=== PATIENT | female | born 1975 | race Caucasian/White ===

== ENCOUNTER 2017-03-09 09:26 | Emergency (ER) | payer OTHER, MEDICAID ==
[~2017-03-09] VITALS: Ht 170.2 cm; Wt 109.0 kg
[~2017-03-09 09:26] MED LIST: LACT10SO PO; LIDO0.052; LORA-392 PO; METO25TA3 PO; MIRA33504 PO; NITR100C4 PO; TAPE100T PO; WELLTAB39 PO; ZOFR4TAB3 SL
[2017-03-09 09:28] VITALS: BP 166/97; PULSE 68; RESP 16; TEMP 98; O2SAT 99
[2017-03-09] MEDS ORDERED: KETOROLAC TROMETHAMINE 30 MG/ML (IVP) VIAL IV PUSH ONE (10:00)
[2017-03-09] MEDS ORDERED: methylPREDNISolone SOD SUCC 125 MG/2 ML VIAL IV PUSH ONE (10:00)
[2017-03-09 10:35] LABS: AUTOMATED NEUTROPHIL # 3.9 TH/MM3 (1.8-7.7); BASOPHIL % 0.3 % (0.0-2.0); HEMATOCRIT 39.4 % (35.0-46.0); HEMO FLAGS DIFF FINAL; LYMPH % 20.9 % (9.0-44.0); LYMPHOCYTE # 1.1 TH/MM3 (1.0-4.8); MEAN CELL VOLUME 83.7 FL (80.0-100.0); MEAN CORPUSCULAR HEMOGLOBIN 28.3 PG (27.0-34.0); MEAN CORPUSCULAR HGB CONC 33.8 % (32.0-36.0); MONO % 7.4 % (0.0-8.0); NEUT % 71.4 % (16.0-70.0); PLATELET COUNT 245 TH/MM3 (150-450); RED BLOOD COUNT 4.71 MIL/MM3 (4.00-5.30); RED CELL DISTRIBUTION WIDTH 12.9 % (11.6-17.2); WHITE BLOOD COUNT 5.5 TH/MM3 (4.0-11.0)
[2017-03-09 10:48] LABS: BICARBONATE 27.7 MEQ/L (21.0-32.0)
[2017-03-09] MEDS ORDERED: LORazepam 2 MG/ML VIAL ONE (11:07)
[2017-03-09] MEDS ORDERED: ONDANSETRON HCL 4 MG/2 ML VIAL ONE (11:07)
[2017-03-09] MEDS ORDERED: LORazepam 2 MG/ML VIAL IV PUSH ONE (11:15)
[2017-03-09] MEDS ORDERED: ONDANSETRON HCL 4 MG/2 ML VIAL IV PUSH ONE (11:15)
--- NOTE | 2017-03-09 11:58 | PD ---
HPI Chief Complaint: Allergic/Adverse Reaction Time Seen by Provider: 09:41 Travel History International Travel<30 days: No Contact w/Intl Traveler<30days: No Traveled to known affect area: No History of Present Illness HPI This is a 41-year-old female who presents to the emergency department with multiple complaints. She had a cervical spine surgery in September of last year and a follow-up. She reports since then she's been having some left arm weakness. She says over the past week her weakness has gotten much worse. She had one episode of urinary incontinence overnight. She also reports that for the past several days every time she takes her Nucynta she develops swelling on the right side of her face, sore throat, and feels like her throat is closing up. She's been taking this pain medication for 5 years but has never had a reaction like this before. She feels generally weak, confused and not herself. She feels like something is wrong. She spoke to her surgery who would not see her again because she was a Worker's Compensation patient but they did prescribe her a Medrol Dosepak over the phone which she has been taking. She is worried that she may have had a stroke. PFSH Past Medical History Hx Anticoagulant Therapy: No Anemia: Yes Arthritis: Yes Asthma: No Autoimmune Disease: No Heart Rhythm Problems: No Cancer: No Cardiovascular Problems: No High Cholesterol: No Chemotherapy: No Chest Pain: No Congestive Heart Failure: No COPD: No Cerebrovascular Accident: No Diabetes: No Diminished Hearing: No Endocrine: No Gastrointestinal Disorders: Yes GERD: No Genitourinary: No Headaches: Yes (MILD HEADACHES) Hepatitis: No Hiatal Hernia: No Herniated Disk: Yes (neck) Hypertension: Yes Immune Disorder: No Inguinal Hernia: Yes Implanted Vascular Access Dvce: Yes Kidney Stones: Yes Musculoskeletal: Yes Psychiatric: No Reproductive: No Respiratory: No Migraines: Yes Renal Failure: Yes Seizures: No Sleep Apnea: No Thyroid Disease: No Ulcer: Yes PNEUMOCCOCAL Vaccine (Year): 2 ?: Not LMP: 02/16/2017 : 2 Para: 2 Tubal Ligation: Yes Past Surgical History Abdominal Surgery: Yes (lap band 2003, 2009, GASTRIC SLEEVE 2014) AICD: No Arteriovenous Shunt: No Body Medical Devices: titanium plate in neck Cardiac Surgery: No Section: Yes (1994; 2009) Ear Surgery: Yes (tubes childhood) Endocrine Surgery: No Eye Surgery: No Genitourinary Surgery: No Gynecologic Surgery: Yes (2 c sections) Hysterectomy: No Insulin Pump: No Joint Replacement: No Neurologic Surgery: No Oral Surgery: Yes (cauterize vessels in nose childhood) Pacemaker: No Thoracic Surgery: No Tonsillectomy: Yes Other Surgery: Yes (HERNIA REPAIR 07/17/14) Social History Alcohol Use: No Tobacco Use: Yes ( cigs/day) Substance Use: No Allergies-Medications (Allergen,Severity, Reaction): Coded Allergies: No Known Allergies (Verified , 03/09/17) Reported Meds & Prescriptions Reported Meds & Active Scripts Active Nitrofurantoin Monohydrate Macrocrystals (Nitrofurantoin Monoh/Nitrofur Macro) 100 Mg Cap 100 Mg PO BID Zofran ODT (Ondansetron HCl) 4 Mg Tab 4 Mg SL Q6H PRN FOR NAUSEA/VOMITING Reported Lidocaine 4% Transparent Topical Dressing 4 % Kit 5 Metoprolol Tartrate 25 Mg Tab 25 Mg PO BID Ativan (Lorazepam) 0.5 Mg Tab 0.5 Mg PO BID PRN PRN Nucynta ER (Tapentadol) 100 Mg Kosta 100 Mg PO BID Lactulose Liq (Lactulose) 10 Gm/15 Ml Soln 15 Ml PO DAILY PRN Miralax Powder (Polyethylene Glycol 3350 Powder) 17 Gm Powd 17 Gm PO DAILY Mix and dissolve one measuring cap-ful (17 grams) in water or juice. Wellbutrin Xl 24 HR (Bupropion HCl) 300 Mg Tab 300 Mg PO DAILY Review of Systems Except as stated in HPI: all other systems reviewed are Neg Physical Exam Narrative GENERAL:Well appearing, no acute distress SKIN: Flushing involving her chest and face HEAD: Atraumatic. Normocephalic. EYES: Pupils pinpoint, equal and reactive no injection or drainage. ENT: Moist mucous membranes NECK: Trachea midline. CARDIOVASCULAR: Regular rate and rhythm. No murmur appreciated. RESPIRATORY: Clear to auscultation. Breath sounds equal bilaterally. GASTROINTESTINAL: Abdomen soft, non-tender, nondistended. MUSCULOSKELETAL: No obvious deformities. NEUROLOGICAL: Awake and alert. No obvious cranial nerve deficits. No dysarthria or aphasia. Inconsistent strength exam with some possible weakness on the left upper and left lower extremity, not reproducible. No upper extremity ataxia. PSYCHIATRIC: Some pressured speech, patient is tangential Data Data Last Documented VS Vital Signs Date Time Temp Pulse Resp B/P Pulse Ox O2 Delivery O2 Flow Rate FiO2 03/09/17 12:32 70 16 127/71 100 Room Air 03/09/17 09:28 98.0 Orders Complete Blood Count With Diff (03/09/17 10:00) Basic Metabolic Panel (Bmp) (03/09/17 10:00) ^ Insert Iv (03/09/17 10:00) Ed Urine Pregnancytest Poc (03/09/17 10:00) Ketorolac Inj (Toradol Inj) (03/09/17 10:00) Methylprednisolone So Succ Inj (Solumedr (03/09/17 10:00) Mri Brain W/O Contrast (03/09/17 ) Mri C Spine W&W/O Contrast (03/09/17 ) Lorazepam Inj (Ativan Inj) (03/09/17 11:15) Ondansetron Inj (Zofran Inj) (03/09/17 11:15) Ondansetron Inj (Zofran Inj) (03/09/17 11:07) Lorazepam Inj (Ativan Inj) (03/09/17 11:07) Gadodiamide Pf Inj (Omniscan Pf Inj) (03/09/17 12:06) Labs Laboratory Tests Test 03/09/17 10:15 White Blood Count 5.5 TH/MM3 Red Blood Count 4.71 MIL/MM3 Hemoglobin 13.3 GM/DL Hematocrit 39.4 % Mean Corpuscular Volume 83.7 FL Mean Corpuscular Hemoglobin 28.3 PG Mean Corpuscular Hemoglobin 33.8 % Concent Red Cell Distribution Width 12.9 % Platelet Count 245 TH/MM3 Mean Platelet Volume 8.6 FL Neutrophils (%) (Auto) 71.4 % Lymphocytes (%) (Auto) 20.9 % Monocytes (%) (Auto) 7.4 % Eosinophils (%) (Auto) 0.0 % Basophils (%) (Auto) 0.3 % Neutrophils # (Auto) 3.9 TH/MM3 Lymphocytes # (Auto) 1.1 TH/MM3 Monocytes # (Auto) 0.4 TH/MM3 Eosinophils # (Auto) 0.0 TH/MM3 Basophils # (Auto) 0.0 TH/MM3 CBC Comment DIFF FINAL Differential Comment Sodium Level 140 MEQ/L Potassium Level 4.0 MEQ/L Chloride Level 109 MEQ/L Carbon Dioxide Level 27.7 MEQ/L Anion Gap 3 MEQ/L Blood Urea Nitrogen 6 MG/DL Creatinine 0.93 MG/DL Estimat Glomerular Filtration 67 ML/MIN Rate Random Glucose 90 MG/DL Calcium Level 8.9 MG/DL [facility] Medical Decision Making Medical Screen Exam Complete: Yes Emergency Medical Condition: Yes Interpretation(s) Afebrile, no tachycardia, hypertensive No leukocytosis Electrolytes are reassuring Last 24 hours Impressions Cervical Spine MRI 03/09/17 0000 Signed Impressions: Service Date/Time: Thursday, March 09, 2017 11:20 - CONCLUSION: 1. The cervical cord is intact with no abnormal enhancement or lesion. 2. Status post anterior fusion at the C5-6 level. 3. Mild disc bulges at the C4-5 and C6-7 levels. Manuel Vargas MD Brain MRI 03/09/17 0000 Signed Impressions: Service Date/Time: Thursday, March 09, 2017 11:20 - CONCLUSION: 1. No acute infarction, hemorrhage or mass. 2. Several small scattered punctate areas of increased signal on the flair weighted images which are nonspecific but likely represents mild chronic small vessel ischemic change. Manuel Vargas MD Differential Diagnosis Epidural abscess, disc herniation, polypharmacy, medication side effect, stroke Narrative Course This is a 41-year-old female who presents to the emergency department with multiple complaints including confusion, left-sided weakness, swelling in her face and sore throat. She is chronically opiate dependent and her symptoms seem to be related to taking Nucynta. The patient is quite tangential. It's very difficult to get a linear history from her. I performed an MRI of her brain and cervical spine both of which were reassuring due to her nonspecific neurologic symptoms. I suspect her symptoms are related to polypharmacy. I advised her to follow up with her pain management doctor. I offered her steroids for her symptoms but she is concerned because she doesn't want to get an infection in her hernia. I don't think she needs them emergently, I do think she needs to have her medications titrated as an outpatient. Diagnosis Primary Impression: Adverse effects of medication Qualified Code: T88.7XXA - Adverse effects of medication, initial encounter Patient Instructions: General Instructions Additional Instructions: If you develop severe chest pain, shortness of breath, sweating, lightheadedness , dizziness or difficulty breathing return to the emergency department immediately. Followup with your primary care physician in 2-3 days if your symptoms are not resolved. Med/Other Pt SpecificInfo: No Change to Meds Disposition: 01 DISCHARGE HOME Condition: Stable Chapis Zuniga MD Mar 09, 2017 11:58
[2017-03-09] MEDS ORDERED: GADODIAMIDE PF 287 MG/ML 5 ML VIAL (for RAD MRI) IV ONE (12:06)
--- NOTE | 2017-03-09 12:11 | RADRPT ---
EXAM DATE/TIME: 03/09/2017 11:20 [facility] COMPARISON: No previous studies available for comparison. INDICATIONS : Left sided weakness. MEDICAL HISTORY : Hypertension. SURGICAL HISTORY : Fusion, cervical. lap band insertion and removal, hernia ENCOUNTER: Initial ACUITY: 2 weeks PAIN SCORE: 0/10 LOCATION: cranial TECHNIQUE: Multiplanar, multisequence MRI of the brain was performed without contrast. FINDINGS: CEREBRUM: The ventricles are normal for age. No evidence of midline shift, mass lesion, hemorrhage or acute in farction. No extraaxial fluid collections are seen. The pituitary gland and suprasellar cistern are normal in configuration. WHITE MATTER: On the flair weighted images there are several small scattered punctate areas of increased signal not ed in the deep white matter. POSTERIOR FOSSA: The cerebellum and brainstem are intact. The 4th ventricle is midline. The cerebellopontine angle is unremarkable. The cerebellar tonsils are normal in position. DIFFUSION IMAGING: No focal areas of restricted diffusion are seen. No evidence of acute infarction. EXTRACRANIAL: The visualized portions of the orbits and paranasal sinuses are unremarkable. CONCLUSION: 1. No acute infarction, hemorrhage or mass. 2. Several small scattered punctate areas of increased signal on the flair weighted images which are nonspecific but likely represents mild chronic small vessel ischemic change. Manuel Vargas MD on March 09, 2017 at 12:07 Board Certified Radiologist. This report was verified electronically.
[2017-03-09 12:32] VITALS: BP 127/71; PULSE 70; RESP 16; O2SAT 100
--- NOTE | 2017-03-09 13:15 | RADRPT ---
EXAM DATE/TIME: 03/09/2017 11:20 [facility] COMPARISON: No previous studies available for comparison. INDICATIONS : Left sided weakness with a history of fusion/ CONTRAST: 22 cc Omniscan (gadodiamide) IV MEDICAL HISTORY : Hypertension. SURGICAL HISTORY : Fusion, cervical. lap band insertion and removal, hernia ENCOUNTER: Initial ACUITY: 2 weeks PAIN SCORE: 0/10 LOCATION: neck TECHNIQUE: Multiplanar, multisequence MRI examination of the cervical spine was performed. FINDINGS: VERTEBRAE: Normal vertebral body height. Homogeneous marrow signal. ALIGNMENT: No evidence of subluxation. DISCS: The patient is status post anterior cervical fusion at the C5-6 level with screw plate fixation devic e and susceptibility artifact. CORD: Normal configuration and signal. POST FOSSA: The cerebellar tonsils are normal in position. POST-CONTRAST: No abnormal areas of enhancement are seen. C2-C3: The thecal sac has a normal configuration. There is no evidence of disc herniation or spinal canal stenosis. The neural foramina are patent bilaterally. C3-C4: The thecal sac has a normal configuration. There is no evidence of disc herniation or spinal canal s tenosis. The neural foramina are patent bilaterally. C4-C5: There is a mild annular disc bulge with mild flattening of the anterior thecal sac and no focal protr usion. There is no evidence of disc herniation or spinal canal stenosis. The neural foramina are pat ent bilaterally.C5-C6: The thecal sac has a normal configuration. There is no evidence of disc herniation or spinal canal s tenosis. The neural foramina are patent bilaterally. C6-C7: There is a mild annular disc bulge with mild flattening of the thecal sac and no mass effect upon the cord. There is no evidence of disc herniation or spinal canal stenosis. The neural foramina are pat ent bilaterally. C7-T1: The thecal sac has a normal configuration. There is no evidence of disc herniation or spinal canal s tenosis. The neural foramina are patent bilaterally. CONCLUSION: 1. The cervical cord is intact with no abnormal enhancement or lesion. 2. Status post anterior fusion at the C5-6 level. 3. Mild disc bulges at the C4-5 and C6-7 levels. Manuel Vargas MD on March 09, 2017 at 13:10 Board Certified Radiologist. This report was verified electronically.
[2017-03-09 14:06] VITALS: BP 131/65
== END 2017-03-09 14:08 | disposition home or self-care (01) ==
LOC: NEPD 09:26
DX: R53.1 Weakness (principal); R22.0 Localized swelling, mass and lump, head; T40.2X5A Adverse effect of other opioids, initial encounter; M50.221 Other cervical disc displacement at C4-C5 level; M50.223 Other cervical disc displacement at C6-C7 level
CPT/HCPCS: 70551; 72156; 80048; 84703; 85025; 96374; 96375; 99284; A9579; J1885; J2060; J2405; J2930

== ENCOUNTER 2018-01-12 19:30 | Emergency (ER) | payer MEDICAID, OTHER ==
[~2018-01-12] VITALS: Ht 172.7 cm; Wt 135.0 kg
[~2018-01-12 19:30] MED LIST changes: +NUCY100T9 PO; -TAPE100T PO
[2018-01-12] MEDS ORDERED: IOHEXOL 350 MG/ML 10 ML VIAL (for RAD DIAG) IVCONTRAST ONE (19:31)
[2018-01-12 19:45] VITALS: BP 172/88; PULSE 83; RESP 16; TEMP 99.1; O2SAT 100
--- NOTE | 2018-01-12 20:36 | PD ---
HPI Chief Complaint: Edema Time Seen by Provider: 20:23 Travel History International Travel<30 days: No Contact w/Intl Traveler<30days: No Traveled to known affect area: No History of Present Illness HPI 42-year-old female presents to the emergency department complaining of swelling of the left lower extremity as well as lower abdomen swelling and noticing early vaginal bleeding that is not consistent with her control pill schedule. Patient states she is on control pills for irregular menstrual bleeding and ovarian cyst management. Patient does not report any ovarian cyst pain or sudden onset lower abdominal pain but does report bloating to the lower abdomen and also complains of weight gain. Patient does not complain of shortness of breath but has had some nonspecific back pain. Patient has chronic neck and back pain. Also multiple abdominal surgeries including failed gastric bypass. Patient rates overall discomfort 3/10 in intensity. Patient denies tobacco use. Patient does not report pleuritic chest pain. Patient denies any dysuria frequency urgency or gross hematuria. Vaginal bleeding is consistent with old blood and few clots. Patient denies . Patient is also status post tubal ligation. [facility] Past Medical History Narrative Medical Anemia arthritis morbid obesity hypertension migraines chronic pain syndrome degenerative disc disease gastric bypass herniorrhaphy tubal ligation ; no tobacco use; nursing notes reviewed Hx Anticoagulant Therapy: No Anemia: Yes Arthritis: Yes Asthma: No Autoimmune Disease: No Heart Rhythm Problems: No Cancer: No Cardiovascular Problems: No High Cholesterol: No Chemotherapy: No Chest Pain: No Congestive Heart Failure: No COPD: No Cerebrovascular Accident: No Diabetes: No Diminished Hearing: No Endocrine: No Gastrointestinal Disorders: Yes GERD: No Genitourinary: No Headaches: Yes (MILD HEADACHES) Hepatitis: No Hiatal Hernia: No Herniated Disk: Yes (neck) Hypertension: Yes Immune Disorder: No Inguinal Hernia: Yes Implanted Vascular Access Dvce: Yes Kidney Stones: Yes Medical other: Yes (HX SHINGLES 10 YEARS AGO) Musculoskeletal: Yes Psychiatric: No Reproductive: No Respiratory: No Migraines: Yes Renal Failure: Yes Seizures: No Sleep Apnea: No Thyroid Disease: No Ulcer: Yes Tetanus Vaccination: < 5 Years Influenza Vaccination: Yes PNEUMOCCOCAL Vaccine (Year): 2 ?: Not LMP: 12/12/2017 : 2 Para: 2 Tubal Ligation: Yes Past Surgical History Abdominal Surgery: Yes (lap band 2003, 2009, GASTRIC SLEEVE 2014) AICD: No Arteriovenous Shunt: No Body Medical Devices: titanium plate in neck Cardiac Surgery: No Section: Yes (1994; 2009) Ear Surgery: Yes (tubes childhood) Endocrine Surgery: No Eye Surgery: No Genitourinary Surgery: No Gynecologic Surgery: Yes (2 c sections) Hysterectomy: No Insulin Pump: No Joint Replacement: No Neurologic Surgery: No Oral Surgery: Yes (cauterize vessels in nose childhood) Pacemaker: No Thoracic Surgery: No Tonsillectomy: Yes Other Surgery: Yes (HERNIA REPAIR 07/17/14) Social History Alcohol Use: No Tobacco Use: No ( cigs/day) Substance Use: No Allergies-Medications (Allergen,Severity, Reaction): Coded Allergies: pregabalin (Verified Allergy, Severe, Anaphylaxis, 01/12/18) Reported Meds & Prescriptions Reported Meds & Active Scripts Active Nitrofurantoin Monohydrate Macrocrystals (Nitrofurantoin Monoh/Nitrofur Macro) 100 Mg Cap 100 Mg PO BID Zofran ODT (Ondansetron HCl) 4 Mg Tab 4 Mg SL Q6H PRN FOR NAUSEA/VOMITING Reported Lidocaine 4% Transparent Topical Dressing 4 % Kit 5 Metoprolol Tartrate 25 Mg Tab 25 Mg PO BID Ativan (Lorazepam) 0.5 Mg Tab 0.5 Mg PO BID PRN PRN Nucynta ER (Tapentadol) 100 Mg Kosta 100 Mg PO BID Lactulose Liq (Lactulose) 10 Gm/15 Ml Soln 15 Ml PO DAILY PRN Miralax Powder (Polyethylene Glycol 3350 Powder) 17 Gm Powd 17 Gm PO DAILY Mix and dissolve one measuring cap-ful (17 grams) in water or juice. Wellbutrin Xl 24 HR (Bupropion HCl) 300 Mg Tab 300 Mg PO DAILY Review of Systems Except as stated in HPI: all other systems reviewed are Neg General / Constitutional: Positive: Weight Gain, No: Fever, Chills HENT: No: Congestion Cardiovascular: No: Chest Pain or Discomfort Respiratory: No: Shortness of Breath Gastrointestinal: Positive: Abdominal Pain, No: Nausea, Vomiting Genitourinary: Positive: Pelvic Pain, Vaginal Bleeding, No: Dysuria Musculoskeletal: Positive: Edema (LLE), Pain (LLE), No: Myalgias, Arthralgias Neurologic: No: Weakness Psychiatric: No: Anxiety Hematologic/Lymphatic: No: Lymph Node Enlargement Physical Exam Narrative GENERAL: Well-developed well-nourished obese female no acute distress or respiratory distress SKIN: Warm and dry. HEAD: Normocephalic. EYES: No scleral icterus. No injection or drainage. NECK: Supple, trachea midline. No JVD or lymphadenopathy. CARDIOVASCULAR: Regular rate and rhythm without murmurs, gallops, or rubs. RESPIRATORY: Breath sounds equal bilaterally. No accessory muscle use. GASTROINTESTINAL: Abdomen soft, non-tender, nondistended. Pelvic exam: Normal external exam no redness induration or lesion; speculum exam scant old blood no clots no tissue cervical loss closed; bimanual exam no adnexal mass or tenderness no cervical motion tenderness MUSCULOSKELETAL: No cyanosis, or edema. Left lower extremity edema with tenderness to palpation in the posterior calf negative Homans sign bilateral dorsalis pedis pulses 2+ to palpation with brisk capillary refill less than 2 seconds no pallor or coolness BACK: Nontender without obvious deformity. No CVA tenderness. Data Data Last Documented VS Vital Signs Date Time Temp Pulse Resp B/P (MAP) Pulse Ox O2 Delivery O2 Flow Rate FiO2 01/12/18 19:45 99.1 83 16 172/88 (116) 100 Orders Orders Complete Blood Count With Diff (01/12/18 20:23) Comprehensive Metabolic Panel (01/12/18 20:23) Urinalysis - C+S If Indicated (01/12/18 20:23) Ed Urine Pregnancytest Poc (01/12/18 20:23) Ct Abd/Pel W Iv Contrast(Rout) (01/12/18 ) Us Leg Venous Doppler (01/12/18 ) D-Dimer (01/12/18 20:23) Ct Pulmonary Angiogram (01/12/18 ) Iohexol 350 Inj (Omnipaque 350 Inj) (01/12/18 19:31) Ed Discharge Order (01/12/18 23:24) Labs Laboratory Tests Test 01/12/18 20:40 01/12/18 21:21 White Blood Count 8.1 TH/MM3 Red Blood Count 4.73 MIL/MM3 Hemoglobin 13.3 GM/DL Hematocrit 39.5 % Mean Corpuscular Volume 83.4 FL Mean Corpuscular Hemoglobin 28.2 PG Mean Corpuscular Hemoglobin Concent 33.7 % Red Cell Distribution Width 13.5 % Platelet Count 246 TH/MM3 Mean Platelet Volume 8.4 FL Neutrophils (%) (Auto) 67.2 % Lymphocytes (%) (Auto) 23.8 % Monocytes (%) (Auto) 8.3 % Eosinophils (%) (Auto) 0.2 % Basophils (%) (Auto) 0.5 % Neutrophils # (Auto) 5.4 TH/MM3 Lymphocytes # (Auto) 1.9 TH/MM3 Monocytes # (Auto) 0.7 TH/MM3 Eosinophils # (Auto) 0.0 TH/MM3 Basophils # (Auto) 0.0 TH/MM3 CBC Comment DIFF FINAL Differential Comment D-Dimer Quantitative (PE/DVT) 0.58 MG/L FEU Blood Urea Nitrogen 14 MG/DL Creatinine 1.03 MG/DL Random Glucose 86 MG/DL Total Protein 7.5 GM/DL Albumin 3.7 GM/DL Calcium Level 9.2 MG/DL Alkaline Phosphatase 105 U/L Aspartate Amino Transf (AST/SGOT) 26 U/L Alanine Aminotransferase (ALT/SGPT) 50 U/L Total Bilirubin 0.2 MG/DL Sodium Level 137 MEQ/L Potassium Level 4.0 MEQ/L Chloride Level 103 MEQ/L Carbon Dioxide Level 27.7 MEQ/L Anion Gap 6 MEQ/L Estimat Glomerular Filtration Rate 59 ML/MIN Urine Color YELLOW Urine Turbidity CLEAR Urine pH 5.5 Urine Specific [place] 1.022 Urine Protein NEG mg/dL Urine Glucose (UA) NEG mg/dL Urine Ketones NEG mg/dL Urine Occult Blood MOD Urine Nitrite NEG Urine Bilirubin NEG Urine Urobilinogen LESS THAN 2.0 MG/DL Urine Leukocyte Esterase NEG Urine RBC 54 /hpf Urine WBC 1 /hpf Urine Squamous Epithelial Cells 1 /hpf Urine Mucus FEW /lpf Microscopic Urinalysis Comment CULT NOT INDICATED MDM Medical Decision Making Medical Screen Exam Complete: Yes Emergency Medical Condition: Yes Medical Record Reviewed: Yes Interpretation(s) poc hcg: negative Last Impressions Lower Extremity Ultrasound 01/12/18 0000 Signed Impressions: Service Date/Time: Friday, January 12, 2018 21:56 - CONCLUSION: No evidence of deep venous thrombosis within the left lower extremity. Brandon Tyson MD CT Angiography 01/12/18 0000 Signed Impressions: Service Date/Time: Friday, January 12, 2018 22:40 - CONCLUSION: 1. No CT evidence for pulmonary embolism. 2. Unremarkable CT examination of the chest. Austen Zapata MD Abdomen/Pelvis CT 01/12/18 0000 Signed Impressions: Service Date/Time: Friday, January 12, 2018 22:40 - CONCLUSION: 1. No acute CT abnormality in the abdomen or pelvis. 2. Normal appendix. 3. Posterior screw features of prior gastric sleeve procedure and anterior abdominal wall hernia repairs. 4. Hepatomegaly with diffusely decreased hepatic attenuation consistent with hepatic steatosis. Austen Zapata MD CBC & BMP Diagram 01/12/18 20:40 Total Protein 7.5, Albumin 3.7, Calcium Level 9.2, Alkaline Phosphatase 105, Aspartate Amino Transf (AST/SGOT) 26, Alanine Aminotransferase (ALT/SGPT) 50, Total Bilirubin 0.2 Vital Signs Date Time Temp Pulse Resp B/P (MAP) Pulse Ox O2 Delivery O2 Flow Rate FiO2 01/12/18 19:45 99.1 83 16 172/88 (116) 100 Differential Diagnosis DVT PE dysfunctional uterine bleeding medication noncompliance anemia UTI ruptured ovarian cyst; also consider ovarian torsion although unlikely at this time Narrative Course IV access obtained specimens collected and sent for result Imaging studies ordered Ultrasound negative for DVT CT pulmonary angiogram is negative for PE and infiltrate and CT abdomen pelvis is negative for acute pelvic process Lab values are found are grossly normal range [id number] hCG is negative and patient is stable for outpatient management Diagnosis Primary Impression: Dysfunctional uterine bleeding Referrals: Primary Care Physician call for appointment Patient Instructions: General Instructions Additional Instructions: Follow-up with your primary care/managing physician Return to the emergency department for any concerns or change in condition May use [id number] ibuprofen/Advil/Motrin 800 mg as often as every 8 hours as needed for discomfort or for fever 100.4F or greater Increase fluid hydration Disposition: 01 DISCHARGE HOME Condition: Stable Na Mcdaniels MD Jan 12, 2018 20:35
[2018-01-12 21:23] LABS: AUTOMATED NEUTROPHIL # 5.4 TH/MM3 (1.8-7.7); BASOPHIL % 0.5 % (0.0-2.0); EOSINOPHIL % 0.2 % (0.0-4.0); HEMATOCRIT 39.5 % (35.0-46.0); HEMOGLOBIN 13.3 GM/DL (11.6-15.3); LYMPH % 23.8 % (9.0-44.0); LYMPHOCYTE # 1.9 TH/MM3 (1.0-4.8); MEAN CELL VOLUME 83.4 FL (80.0-100.0); MEAN CORPUSCULAR HEMOGLOBIN 28.2 PG (27.0-34.0); MEAN CORPUSCULAR HGB CONC 33.7 % (32.0-36.0); MEAN PLATELET VOLUME 8.4 FL (7.0-11.0); MONO % 8.3 % (0.0-8.0); MONOCYTE # 0.7 TH/MM3 (0-0.9); NEUT % 67.2 % (16.0-70.0); PLATELET COUNT 246 TH/MM3 (150-450); RED BLOOD COUNT 4.73 MIL/MM3 (4.00-5.30); RED CELL DISTRIBUTION WIDTH 13.5 % (11.6-17.2); WHITE BLOOD COUNT 8.1 TH/MM3 (4.0-11.0)
[2018-01-12 21:44] LABS: BILIRUBIN, URINE NEG (NEG); BLOOD, URINE MOD (NEG); GLUCOSE,URINE NEG (NEG); KETONE, URINE NEG (NEG); MUCUS URINE FEW /lpf (OCC); NITRITE,URINE NEG (NEG); PH, URINE 5.5 (5.0-8.5); SQUAMOUS EPITHELIAL CELL URINE 1 /hpf (0-5); URINE COLOR YELLOW (YELLW/STRAW); URINE LEUKOCYTE ESTERASE NEG (NEG)
[2018-01-12 21:45] LABS: ALBUMIN 3.7 GM/DL (3.4-5.0); AST (GOT) 26 U/L (15-37); BICARBONATE 27.7 MEQ/L (21.0-32.0); BLOOD UREA NITROGEN 14 MG/DL (7-18); CALCIUM 9.2 MG/DL (8.5-10.1); CHLORIDE 103 MEQ/L (98-107); CREATININE 1.03 MG/DL (0.50-1.00); GLOMERULAR FILTRATION RATE 59 ML/MIN (>89); GLUCOSE,RANDOM 86 MG/DL (74-106); SODIUM (NA) 137 MEQ/L (136-145)
[2018-01-12 21:46] LABS: ALT (GPT) 50 U/L (10-53)
[2018-01-12 21:49] LABS: ALKALINE PHOSPHATASE 105 U/L (45-117); TOTAL BILIRUBIN ADULT 0.2 MG/DL (0.2-1.0); TOTAL PROTEIN 7.5 GM/DL (6.4-8.2)
--- NOTE | 2018-01-12 22:30 | RADRPT ---
EXAM DATE/TIME: 01/12/2018 21:56 [facility] COMPARISON: No previous studies available for comparison. INDICATIONS : Left leg swelling. MEDICAL HISTORY : Gastroesophageal reflux disease. . Renal failure, chronic. Migraines. Hypertension. Ulcer . IBD. Kidney stones. Inguinal hernia. Slipped discs. Arthritis. Depression. Anxiety. Anemia. Blood t ransfusion. Shingles. SURGICAL HISTORY : section. Tubal ligation. Tonsillectomy. Nephrectomy. Kidney transplant. Ear tubes. Lap band . Gastric sleeve. Cervical fusion. stimulator placement and removal. Hernia repair. ENCOUNTER: Initial ACUITY: 1 day PAIN SCORE: 4/10 LOCATION: Left leg. TECHNIQUE: Venous ultrasound of the leg was performed from the inguinal ligament to the proximal calf. Real-madyson e, color Doppler and spectral tracing, compression and augmentation techniques were used. FINDINGS: There is normal compressibility of the deep venous system from the inguinal region to the proximal ca lf. No echogenic clot is seen in the lumen of the common femoral, femoral, popliteal, and posterior tibial veins. There is a normal response of the venous system to proximal and distal augmentation an d respiration. CONCLUSION: No evidence of deep venous thrombosis within the left lower extremity. Brandon Tyson MD on January 12, 2018 at 22:29 Board Certified Radiologist. This report was verified electronically.
--- NOTE | 2018-01-12 23:00 | RADRPT ---
EXAM DATE/TIME: 01/12/2018 22:40 [facility] COMPARISON: No previous studies available for comparison. INDICATIONS : Shortness of breath. IV CONTRAST: 100 cc Omnipaque 350 (iohexol) IV ; Cumulative dose for multiple exams. RADIATION DOSE: 9.0 CTDIvol (mGy) MEDICAL HISTORY : Hypertension. SURGICAL HISTORY : Tubal ligation. ENCOUNTER: Initial ACUITY: 1 day PAIN SCALE: 0/10 LOCATION: chest TECHNIQUE: Volumetric scanning of the chest was performed using a pulmonary embolism protocol MIP images were re constructed. Using automated exposure control and adjustment of the mA and/or kV according to patien t size, radiation dose was kept as low as reasonably achievable to obtain optimal diagnostic quality images. DICOM format image data is available electronically for review and comparison. Follow-up recommendations for detected pulmonary nodules are based at a minimum on nodule size and pa tient risk factors according to Fleischner Society Guidelines. FINDINGS: PULMONARY ARTERIES: No filling defects are seen in the pulmonary arteries through the segmental level. LUNGS: There is no consolidation or pneumothorax . No concerning pulmonary nodule is visualized. PLEURAE: There is no pleural thickening or pleural effusion. MEDIASTINUM: There is good visualization of the great vessels of the middle mediastinum. No evidence of mediastin al or hilar adenopathy/mass. MUSCULOSKELETAL: Within normal limits for patient age. MISCELLANEOUS: The visualized upper abdominal organs demonstrate post surgical features of prior gastric sleep proce dure. Otherwise, unremarkable. CONCLUSION: 1. No CT evidence for pulmonary embolism. 2. Unremarkable CT examination of the chest. Austen Zapata MD on January 12, 2018 at 22:57 Board Certified Radiologist. This report was verified electronically.
--- NOTE | 2018-01-12 23:06 | RADRPT ---
EXAM DATE/TIME: 01/12/2018 22:40 [facility] COMPARISON: CT ABDOMEN & PELVIS W CONTRAST, November 18, 2015, 23:28. INDICATIONS : Lower abdomen pain and bloating. IV CONTRAST: 100 cc Omnipaque 350 (iohexol) IV ; Cumulative dose for multiple exams. ORAL CONTRAST: No oral contrast ingested. RADIATION DOSE: 19.03 CTDIvol (mGy) MEDICAL HISTORY : Hypertension. Gastroesophageal reflux disease. Renal calculi.IBS. Ulcers. SURGICAL HISTORY : section. Tubal ligation.Inguinal hernia repair.Gastric sleeve. ENCOUNTER: Initial ACUITY: 3 months PAIN SCALE: 6/10 LOCATION: Bilateral lower quadrant TECHNIQUE: Volumetric scanning of the abdomen and pelvis was performed. Using automated exposure control and ad justment of the mA and/or kV according to patient size, radiation dose was kept as low as reasonably achievable to obtain optimal diagnostic quality images. DICOM format image data is available electro nically for review and comparison. FINDINGS: LOWER LUNGS: The visualized lower lungs are clear. LIVER: Liver is enlarged with slightly decreased density diffusely. No focal mass or intrahepatic ductal dil atation. No calcified gallstones. SPLEEN: Normal size without lesion. PANCREAS: Within normal limits. KIDNEYS: Normal in size and shape. There is no mass, stone or hydronephrosis. ADRENAL GLANDS: Within normal limits. VASCULAR: There is no aortic aneurysm. BOWEL/MESENTERY: Stable postsurgical fusion prior gastric sleeve procedure. Appendix is visualized and normal in appea nidhi. Bowel appear unremarkable without evidence for obstruction. No free air or free fluid. No drai nable fluid collection. ABDOMINAL WALL: Postsurgical features of prior mesh repair of left intra-abdominal hernia. There's also been interval repair of previously noted on local hernia. RETROPERITONEUM: There is no lymphadenopathy. BLADDER: No wall thickening or mass. REPRODUCTIVE: Within normal limits. INGUINAL: There is no lymphadenopathy or hernia. MUSCULOSKELETAL: Within normal limits for patient age. CONCLUSION: 1. No acute CT abnormality in the abdomen or pelvis. 2. Normal appendix. 3. Posterior screw features of prior gastric sleeve procedure and anterior abdominal wall hernia repa irs. 4. Hepatomegaly with diffusely decreased hepatic attenuation consistent with hepatic steatosis. Austen Zapata MD on January 12, 2018 at 23:00 Board Certified Radiologist. This report was verified electronically.
[2018-01-12 23:58] VITALS: BP 168/70
== END 2018-01-13 00:01 | disposition home or self-care (01) ==
LOC: NEPC 19:30
DX: N93.8 Other specified abnormal uterine and vaginal bleeding (principal); M54.2 Cervicalgia; M54.9 Dorsalgia, unspecified; G89.29 Other chronic pain; D64.9 Anemia, unspecified; N19 Unspecified kidney failure
CPT/HCPCS: 71275; 74177; 80053; 81001; 84703; 85025; 85379; 93971; 99285; Q9967

== ENCOUNTER 2018-04-17 11:37 | Emergency (ER) | payer OTHER, MEDICAID ==
[~2018-04-17] VITALS: Ht 175.3 cm; Wt 150.0 kg
[2018-04-17 11:40] VITALS: BP 153/81; PULSE 76; RESP 16; TEMP 98.8; O2SAT 98
[2018-04-17] MEDS ORDERED: SODIUM CHLORIDE 0.9% FLUSH 10 ML FLUSH IV FLUSH PRN (12:30)
[2018-04-17] MEDS ORDERED: KETOROLAC TROMETHAMINE 30 MG/ML (IVP) VIAL IVP ONE (12:30)
[2018-04-17] MEDS ORDERED: VERA80TA PO (12:32)
[2018-04-17] MEDS ORDERED: OXYC5CAP43 PO (12:32)
[2018-04-17] MEDS ORDERED: ROPI0.5T PO (12:32)
[2018-04-17 12:43] VITALS: BP 140/88; PULSE 70; RESP 18; O2SAT 97
[2018-04-17 12:44] VITALS: O2SAT 97
[2018-04-17 13:27] LABS: AUTOMATED NEUTROPHIL # 4.3 TH/MM3 (1.8-7.7); BASOPHIL % 0.5 % (0.0-2.0); EOSINOPHIL % 0.1 % (0.0-4.0); HEMATOCRIT 42.2 % (35.0-46.0); HEMOGLOBIN 13.9 GM/DL (11.6-15.3); LYMPH % 26.5 % (9.0-44.0); LYMPHOCYTE # 1.8 TH/MM3 (1.0-4.8); MEAN CELL VOLUME 83.6 FL (80.0-100.0); MEAN CORPUSCULAR HEMOGLOBIN 27.6 PG (27.0-34.0); MEAN CORPUSCULAR HGB CONC 33.1 % (32.0-36.0); MEAN PLATELET VOLUME 9.6 FL (7.0-11.0); MONO % 9.8 % (0.0-8.0); MONOCYTE # 0.7 TH/MM3 (0-0.9); NEUT % 63.1 % (16.0-70.0); PLATELET COUNT 321 TH/MM3 (150-450); RED BLOOD COUNT 5.04 MIL/MM3 (4.00-5.30); RED CELL DISTRIBUTION WIDTH 13.2 % (11.6-17.2); WHITE BLOOD COUNT 6.8 TH/MM3 (4.0-11.0)
[2018-04-17 13:42] LABS: ALBUMIN 3.7 GM/DL (3.4-5.0); ALT (GPT) 28 U/L (10-53); AST (GOT) 14 U/L (15-37); BICARBONATE 24.7 MEQ/L (21.0-32.0); BLOOD UREA NITROGEN 8 MG/DL (7-18); CHLORIDE 105 MEQ/L (98-107); CREATININE 0.95 MG/DL (0.50-1.00); GLOMERULAR FILTRATION RATE 65 ML/MIN (>89); GLUCOSE,RANDOM 87 MG/DL (74-106); SODIUM (NA) 139 MEQ/L (136-145)
[2018-04-17 13:45] LABS: ALKALINE PHOSPHATASE 114 U/L (45-117); TOTAL BILIRUBIN ADULT 0.4 MG/DL (0.2-1.0); TOTAL PROTEIN 7.9 GM/DL (6.4-8.2)
[2018-04-17] MEDS ORDERED: IOHEXOL 350 MG/ML 10 ML VIAL (for RAD DIAG) IVCONTRAST ONE (14:21)
[2018-04-17 14:31] VITALS: BP 149/73; PULSE 76; RESP 18; O2SAT 99
[2018-04-17 14:33] LABS: BACTERIA, URINE MOD /hpf; BILIRUBIN, URINE NEG (NEG); BLOOD, URINE NEG (NEG); GLUCOSE,URINE NEG (NEG); KETONE, URINE NEG (NEG); MUCUS URINE FEW /lpf (OCC); NITRITE,URINE NEG (NEG); SQUAMOUS EPITHELIAL CELL URINE 5 /hpf (0-5); URINE COLOR YELLOW (YELLW/STRAW); URINE LEUKOCYTE ESTERASE LARGE (NEG)
--- NOTE | 2018-04-17 15:28 | RADRPT ---
EXAM DATE: 04/17/2018 3:22 PM EDT AGE/SEX: 42 years / Female INDICATIONS: Nausea, vomiting, left sided abdomen pain for 3 days CLINICAL DATA: This is the patient's initial encounter. Patient reports that signs and symptoms have been present for 3 days and indicates a pain score of 6/10. MEDICAL/SURGICAL HISTORY: Hypertension. Gastroesophageal reflux disease. Inguinal hernia repai r. Lap band ORAL CONTRAST: No oral contrast ingested. RADIATION DOSE: 17.25 CTDI (mGy) [place] [facility] [place]AST, [place]/2018. . TECHNIQUE: Multiple contiguous axial images were obtained through the abdomen and pelvis following b olus infusion of 70 ml Omnipaque 350 (iohexol) nonionic water-soluble contrast as a single exam dos e. No oral contrast ingested. Using automated exposure control and adjustment of the mA and/or kV ac cording to patient size, the radiation dose was kept as low as reasonably achievable to obtain optima l diagnostic quality images. FINDINGS: Liver measures 23.7 cm craniocaudal. No focal hepatic lesion. No biliary distention. CT appearance of the gallbladder within normal limits. Spleen, pancreas, adrenal glands and kidneys are all within normal limits. No obstruction or acute inflammatory changes are seen of the gastrointestinal tract. Gastric bypass c hanges are again noted. Patient has had ventral hernia repair with mesh, appears intact. Visualized lung bases are free of infiltrate and effusion. No acute bony abnormality demonstrated. CONCLUSION: 1. No obstruction or acute inflammatory changes are demonstrated. 2. Nonspecific hepatomegaly. 3. Gastric bypass changes without evidence of an acute complication. 4. Ventral hernia repair changes without evidence of an acute complication. Electronically signed by: Nilo Burns MD 04/17/2018 3:26 PM EDT
--- NOTE | 2018-04-17 16:24 | RADRPT ---
EXAM DATE: 04/17/2018 4:20 PM EDT AGE/SEX: 42 years / Female INDICATIONS: Left leg swelling. CLINICAL DATA: This is the patient's initial encounter. Patient reports that signs and symptoms have been present for 4 - 6 days and indicates a pain score of 5/10. MEDICAL/SURGICAL HISTORY: Hypertension. Gastroesophageal reflux disease. Cervical spine hernia tion. Ulcers. Inflammatory bowel disease. Renal failure. Kidney stones. Arthritis. Anemia. Blood wren sfusions. Tonsillectomy. section. Tubal ligation. Lap band surgery. Gastric sleeve surg danie. Nephrectomy. Kidney transplant. [place] [facility] [place]. . TECHNIQUE: Venous ultrasound of both lower extremities was performed from the inguinal ligament to t he proximal calf. Real-time, color Doppler and spectral tracing, compression and augmentation techni ques were used. FINDINGS: There is normal compressibility of the deep venous system from the inguinal region to the proximal ca lf. No echogenic clot is seen in the lumen of the common femoral, femoral, popliteal, and posterior tibial veins. There is a normal response of the venous system to proximal and distal augmentation an d respiration. CONCLUSION: 1. No venous thrombosis of the left lower extremity. Electronically signed by: Nilo Burns MD 04/17/2018 4:23 PM EDT
[2018-04-17 16:55] VITALS: BP 140/80; PULSE 67; RESP 16; O2SAT 98
[2018-04-17] MEDS ORDERED: CIPR-9 PO (17:21)
[2018-04-17] MEDS ORDERED: KETO10 PO (17:21)
--- NOTE | 2018-04-17 17:22 | PD ---
HPI Chief Complaint: GI Complaint Time Seen by Provider: 12:08 Travel History International Travel<30 days: No Contact w/Intl Traveler<30days: No Traveled to known affect area: No History of Present Illness HPI Patient is a 42-year-old female who comes in complaining of abdominal bloating, lower abdominal pain and left flank pain. She says this is been going on for a while, but is getting worse. She says the left-sided pain is new. She was here 2 months ago and was told to stop her control and follow-up with [facility]. She has not been able to see the stock room manager yet because of insurance issues. She also complains of some left leg swelling and pain behind her left knee. She has been taking ibuprofen for pain with some relief of her symptoms. She has had some nausea but no vomiting. She says she is moving her bowels normally. Severity is mild to moderate. PFSH Past Medical History Hx Anticoagulant Therapy: No Anemia: Yes Arthritis: Yes Asthma: No Autoimmune Disease: No Heart Rhythm Problems: No Cancer: No Cardiovascular Problems: No High Cholesterol: No Chemotherapy: No Chest Pain: No Congestive Heart Failure: No COPD: No Cerebrovascular Accident: No Diabetes: No Diminished Hearing: No Endocrine: No Gastrointestinal Disorders: Yes GERD: No Genitourinary: No Headaches: Yes (MILD HEADACHES) Hepatitis: No Hiatal Hernia: No Herniated Disk: Yes (neck) Hypertension: Yes Immune Disorder: No Inguinal Hernia: Yes Implanted Vascular Access Dvce: Yes Kidney Stones: Yes Medical other: Yes (HX SHINGLES 10 YEARS AGO) Musculoskeletal: Yes Psychiatric: No Reproductive: No Respiratory: No Migraines: Yes Renal Failure: Yes Seizures: No Sleep Apnea: No Thyroid Disease: No Ulcer: Yes PNEUMOCCOCAL Vaccine (Year): 2 ?: Not : 2 Para: 2 Tubal Ligation: Yes Past Surgical History Abdominal Surgery: Yes (lap band 2003, 2009, GASTRIC SLEEVE 2014) AICD: No Arteriovenous Shunt: No Body Medical Devices: titanium plate in neck Cardiac Surgery: No Section: Yes (1994; 2009) Ear Surgery: Yes (tubes childhood) Endocrine Surgery: No Eye Surgery: No Genitourinary Surgery: No Gynecologic Surgery: Yes (2 c sections) Hysterectomy: No Insulin Pump: No Joint Replacement: No Neurologic Surgery: No Oral Surgery: Yes (cauterize vessels in nose childhood) Pacemaker: No Thoracic Surgery: No Tonsillectomy: Yes Other Surgery: Yes (HERNIA REPAIR 07/17/14) Social History Alcohol Use: No Tobacco Use: No ( cigs/day) Substance Use: No Allergies-Medications (Allergen,Severity, Reaction): Coded Allergies: Penicillins (Verified Allergy, Severe, Itching, 04/17/18) Sulfa (Sulfonamide Antibiotics) (Verified Allergy, Severe, Swelling, ) pregabalin (Verified Allergy, Severe, Anaphylaxis, 01/12/18) Reported Meds & Prescriptions Reported Meds & Active Scripts Active Zofran ODT (Ondansetron HCl) 4 Mg Tab 4 Mg SL Q6H PRN FOR NAUSEA/VOMITING Reported Verapamil (Verapamil HCl) 80 Mg Tab 80 Mg PO BID Xtampza ER (Oxycodone) 9 Mg Cap PO TID Ropinirole 0.5 Mg Tab 0.5 Mg PO TID Lidocaine 4% Transparent Topical Dressing 4 % Kit 5 Lactulose Liq (Lactulose) 10 Gm/15 Ml Soln 15 Ml PO DAILY PRN Miralax Powder (Polyethylene Glycol 3350 Powder) 17 Gm Powd 17 Gm PO DAILY Mix and dissolve one measuring cap-ful (17 grams) in water or juice. Review of Systems Except as stated in HPI: all other systems reviewed are Neg General / Constitutional: No: Fever, Chills HENT: No: Headaches, Lightheadedness Cardiovascular: No: Chest Pain or Discomfort Respiratory: No: Shortness of Breath Gastrointestinal: Positive: Nausea, Abdominal Pain, No: Vomiting Genitourinary: Positive: Flank Pain Musculoskeletal: No: Myalgias, Edema Skin: No Rash, No Change in Pigmentation Neurologic: No: Weakness, Dizziness Physical Exam Narrative GENERAL: Awake and alert, in no acute distress. SKIN: Focused skin assessment warm/dry. HEAD: Atraumatic. Normocephalic. EYES: Pupils equal and round. No scleral icterus. ENT: Mucous membranes pink and moist. NECK: Trachea midline. No JVD. CARDIOVASCULAR: Regular rate and rhythm. No murmur appreciated. RESPIRATORY: No accessory muscle use. Clear to auscultation. Breath sounds equal bilaterally. GASTROINTESTINAL: Abdomen soft, non-tender, nondistended. Mild left CVA tenderness. MUSCULOSKELETAL: No obvious deformities. No clubbing. No cyanosis. No edema. NEUROLOGICAL: Awake and alert. No obvious cranial nerve deficits. Motor grossly within normal limits. Normal speech. PSYCHIATRIC: Appropriate mood and affect; insight and judgment normal. Data Data Last Documented VS Vital Signs Date Time Temp Pulse Resp B/P (MAP) Pulse Ox O2 Delivery O2 Flow Rate FiO2 04/17/18 16:55 67 16 140/80 (100) 98 Room Air 04/17/18 11:40 98.8 Orders Orders Complete Blood Count With Diff (04/17/18 12:22) Comprehensive Metabolic Panel (04/17/18 12:22) Lipase (04/17/18 12:22) Prothrombin Time / Inr (Pt) (04/17/18 12:22) Act Partial Throm Time (Ptt) (04/17/18 12:22) Urinalysis - C+S If Indicated (04/17/18 12:22) Ct Abd/Pel W Iv Contrast(Rout) (04/17/18 12:22) Iv Access Insert/Monitor (04/17/18 12:22) Ecg Monitoring (04/17/18 12:22) Oximetry (04/17/18 12:22) Sodium Chloride 0.9% Flush (Ns Flush) (04/17/18 12:30) Ketorolac Inj (Toradol Inj) (04/17/18 12:30) Us Leg Venous Doppler (04/17/18 ) Iohexol 350 Inj (Omnipaque 350 Inj) (04/17/18 14:21) Urine Culture (04/17/18 13:30) Labs Laboratory Tests Test 04/17/18 12:35 04/17/18 13:30 White Blood Count 6.8 TH/MM3 Red Blood Count 5.04 MIL/MM3 Hemoglobin 13.9 GM/DL Hematocrit 42.2 % Mean Corpuscular Volume 83.6 FL Mean Corpuscular Hemoglobin 27.6 PG Mean Corpuscular Hemoglobin Concent 33.1 % Red Cell Distribution Width 13.2 % Platelet Count 321 TH/MM3 Mean Platelet Volume 9.6 FL Neutrophils (%) (Auto) 63.1 % Lymphocytes (%) (Auto) 26.5 % Monocytes (%) (Auto) 9.8 % Eosinophils (%) (Auto) 0.1 % Basophils (%) (Auto) 0.5 % Neutrophils # (Auto) 4.3 TH/MM3 Lymphocytes # (Auto) 1.8 TH/MM3 Monocytes # (Auto) 0.7 TH/MM3 Eosinophils # (Auto) 0.0 TH/MM3 Basophils # (Auto) 0.0 TH/MM3 CBC Comment DIFF FINAL Differential Comment Prothrombin Time 10.0 SEC Prothromb Time International Ratio 1.0 RATIO Activated Partial Thromboplast Time 32.2 SEC Blood Urea Nitrogen 8 MG/DL Creatinine 0.95 MG/DL Random Glucose 87 MG/DL Total Protein 7.9 GM/DL Albumin 3.7 GM/DL Calcium Level 9.0 MG/DL Alkaline Phosphatase 114 U/L Aspartate Amino Transf (AST/SGOT) 14 U/L Alanine Aminotransferase (ALT/SGPT) 28 U/L Total Bilirubin 0.4 MG/DL Sodium Level 139 MEQ/L Potassium Level 4.2 MEQ/L Chloride Level 105 MEQ/L Carbon Dioxide Level 24.7 MEQ/L Anion Gap 9 MEQ/L Estimat Glomerular Filtration Rate 65 ML/MIN Lipase 164 U/L Urine Color YELLOW Urine Turbidity HAZY Urine pH 7.0 Urine Specific Golden 1.017 Urine Protein NEG mg/dL Urine Glucose (UA) NEG mg/dL Urine Ketones NEG mg/dL Urine Occult Blood NEG Urine Nitrite NEG Urine Bilirubin NEG Urine Urobilinogen LESS THAN 2.0 MG/DL Urine Leukocyte Esterase LARGE Urine RBC LESS THAN 1 /hpf Urine WBC 28 /hpf Urine Squamous Epithelial Cells 5 /hpf Urine Bacteria MOD /hpf Urine Mucus FEW /lpf Microscopic Urinalysis Comment CULTURE INDICATED MDM Medical Decision Making Medical Screen Exam Complete: Yes Emergency Medical Condition: Yes Medical Record Reviewed: Yes Differential Diagnosis UTI vs renal stone vs ovarian cyst Narrative Course Patient is a 42-year-old female who comes in complaining of abdominal pain and flank pain. Exam shows mild left CVA tenderness. IV established, labs sent. Labs show no acute abnormalities. CT abdomen and pelvis performed shows no acute abnormalities. Last 24 hours Impressions Abdomen/Pelvis CT 04/17/18 1222 Signed Impressions: CONCLUSION: 1. No obstruction or acute inflammatory changes are demonstrated. 2. Nonspecific hepatomegaly. 3. Gastric bypass changes without evidence of an acute complication. 4. Ventral hernia repair changes without evidence of an acute complication. Lower Extremity Ultrasound 04/17/18 0000 Signed Impressions: CONCLUSION: 1. No venous thrombosis of the left lower extremity. Urinalysis is positive for UTI. Patient given IV fluids, Toradol. She reports feeling better. She will be discharged with antibiotics. Advised follow-up with [facility]. Advised return to the ED as needed for any worsening symptoms. Diagnosis Primary Impression: UTI (urinary tract infection) Qualified Codes: N30.00 - Acute cystitis without hematuria Patient Instructions: General Instructions, Urinary Tract Infection in Women ( ED) Additional Instructions: Follow-up with gynecology. Take all of your antibiotic. Return to the ED as needed for any worsening symptoms. Scripts Ketorolac (Ketorolac) 10 Mg Tab 10 MG PO TID for Pain Management, #10 TAB 0 Refills Prov: Gris Oconnor MD 04/17/18 Ciprofloxacin (Cipro) 500 Mg Tab 500 MG PO BID for Infection for 10 Days, #20 TAB 0 Refills Prov: Gris Oconnor MD 04/17/18 Disposition: 01 DISCHARGE HOME Condition: Stable Gris Oconnor MD Apr 17, 2018 17:22
== END 2018-04-17 18:09 | disposition home or self-care (01) ==
LOC: NEPE 11:37
DX: N39.0 Urinary tract infection, site not specified (principal); B96.20 Unspecified Escherichia coli [E. coli] as the cause of diseases classified elsewhere; R16.0 Hepatomegaly, not elsewhere classified; R11.0 Nausea; M79.89 Other specified soft tissue disorders; M25.562 Pain in left knee; D64.9 Anemia, unspecified; I10 Essential (primary) hypertension; N19 Unspecified kidney failure
CPT/HCPCS: 74177; 80053; 81001; 83690; 85025; 85610; 85730; 87077; 87086; 87186; 93971; 96374; 99285; J1885; Q9967